=== PATIENT | male | born 1955 | race Caucasian/White ===

== ENCOUNTER 2019-08-29 10:58 | Inpatient (IN) | payer BC ==
[2019-08-29] VITALS (11 sets, daily range): BP systolic 116–149; BP diastolic 8–90; BMI 27.2
[~2019-08-29] VITALS: Ht 182.9 cm; Wt 92.1 kg
[2019-08-29] MEDS ORDERED: ACCURETIC PO (11:01)
[2019-08-29 11:34] LABS: CALC OSMOLALITY 296 mosm/kg (275-300); CALCIUM 9.3 mg/dL (8.5-10.1); CARBON DIOXIDE 28.5 mmol/L (21.0-32.0); CHLORIDE - SERUM 109 mmol/L (98-107); CREATININE - SERUM 1.2 mg/dL (0.6-1.3); GLUCOSE 96 mg/dL (74-106); POTASSIUM - SERUM 3.7 mmol/L (3.5-5.1); SODIUM 143 mmol/L (136-145); UREA NITROGEN 47 mg/dL (7-18); eGFR NON AFRICAN AMERICAN 65 mL/min (90-120)
[2019-08-29 11:35] LABS: APTT 25.8 SECONDS (22.8-39.4); INR 1.2 (0.85-1.17); PROTIME 15.2 SECONDS (11.6-15.0)
[2019-08-29 11:48] LABS: BASOPHILS 0.3 % (0-2); EOSINOPHILS 0.6 % (0-7); HEMATOCRIT 35.8 % (42.0-54.0); HEMOGLOBIN 11.7 g/dL (13.5-17.5); IMMATURE GRANULOCYTES 0.3 % (0-5); LYMPHOCYTES 6.6 % (15-50); MCH 30.8 pg (26.0-34.0); MCHC 32.7 g/dL (31.0-37.0); MCV 94.2 fL (80.0-100.0); MEAN PLATELET VOLUME 9.7 fL (7.4-10.4); MONOCYTES 4.8 % (2-11); NEUTROPHILS 87.4 % (40-80); PLATELET COUNT 303 10x3/uL (130-400); RDW 14.4 % (11.5-14.5); WBC 14.5 10x3/uL (4.8-10.8)
[2019-08-29 11:49] LABS: ALBUMIN 3.3 g/dL (3.4-5.0); ALKALINE PHOSPHATASE 43 U/L (30-120); ALT (SGPT) 19 U/L (10-68); BILIRUBIN - TOTAL 0.25 mg/dL (0.2-1.3); CKMB 0.5 U/L (0.0-3.6); CREATINE KINASE 40 UL (21-232); PROTEIN - SERUM 6.5 g/dL (6.4-8.2)
[2019-08-29 11:55] LABS: TROPONIN-I < 0.017 ng/mL (0.000-0.060)
--- NOTE | 2019-08-29 13:12 | NUR ---
REPORT RECEIVED FROM HEATHER FERNÁNDEZ IN THE ER. PT HOOKED TO ICU MONITORS. NSR ON THE MONITOR. VSS. PT DENIES PAIN AT THIS TIME. IV NOTED TO L AND R SISSY. DAVION DUMONT AT THE PTS BEDSIDE. PLAN FOR EGD LATER ON TODAY. PT CONSENTED FOR EGD WITH TIVA AND BLOOD TRANSFUSION IF NEEDED. PT CALL LIGHT IN REACH. WILL CONT POC.
[2019-08-29 15:22] LABS: HEMATOCRIT 36.5 % (42.0-54.0); HEMOGLOBIN 11.7 g/dL (13.5-17.5)
--- NOTE | 2019-08-29 16:00 | NUR ---
VSS. DENIES PAIN AT THIS TIME. CALL LIGHT IN REACH. WILL CONT POC.
--- NOTE | 2019-08-29 18:00 | NUR ---
VSS. WAITING FOR GI LAB. CALL LIGHT IN REACH. WILL CONT POC.
--- NOTE | 2019-08-29 19:20 | NUR ---
REPORT RECIEVED, SHIFT ASSESSMENT COMPLETE, PT IS ALERT AND ORIENTED, ALL PPP, VSS, CALL LIGHT IN REACH
--- NOTE | 2019-08-29 21:15 | NUR ---
FAMILY AT BEDSIDE, UPDATE GIVEN
[2019-08-29 21:23] LABS: HEMATOCRIT 33.8 % (42.0-54.0)
--- NOTE | 2019-08-29 23:28 | NUR ---
REASSESSMENT COMPLETE, NO CHANGES NOTED, WILL CON'T TO MONITOR
[2019-08-30] VITALS (13 sets, daily range): BP systolic 100–171; BP diastolic 55–113; Ht 182.9 cm; Wt 92.1 kg
--- NOTE | 2019-08-30 01:20 | NUR ---
NO NEEDS NOTED AT THIS TIME, WILL CON'T TO MONITOR
--- NOTE | 2019-08-30 03:15 | NUR ---
REASSESSMENT COMPELTE, NO CHANGES NOTED, PT RESTING AT THIS TIME, VSS, CALL LIGHT IN REACH
[2019-08-30 04:25] LABS: BASOPHILS 0.6 % (0-2); EOSINOPHILS 3.3 % (0-7); HEMOGLOBIN 10.2 g/dL (13.5-17.5); IMMATURE GRANULOCYTES 0.2 % (0-5); MCHC 31.9 g/dL (31.0-37.0); MCV 94.1 fL (80.0-100.0); MEAN PLATELET VOLUME 9.9 fL (7.4-10.4); MONOCYTES 7.1 % (2-11); NEUTROPHILS 73.8 % (40-80); PLATELET COUNT 274 10x3/uL (130-400); RDW 14.7 % (11.5-14.5)
[2019-08-30 04:35] LABS: WBC 10.1 10x3/uL (4.8-10.8)
[2019-08-30 04:47] LABS: ANION GAP 10.9 mmol/L (8-16); BILIRUBIN - TOTAL 0.43 mg/dL (0.2-1.3); CALCIUM 8.1 mg/dL (8.5-10.1); CARBON DIOXIDE 26.5 mmol/L (21.0-32.0); CREATININE - SERUM 1.1 mg/dL (0.6-1.3); POTASSIUM - SERUM 3.4 mmol/L (3.5-5.1); PROTEIN - SERUM 5.9 g/dL (6.4-8.2)
--- NOTE | 2019-08-30 05:30 | NUR ---
PT RESTING AT THIS TIME, WILL CON'T TO MONITOR
--- NOTE | 2019-08-30 07:35 | NUR ---
REPORT RECEVIED FROM THE OFF GOING RN. SEE ASSESSMENT IN THE PTS FLOW SHEET. PT DENIES PAIN AT THIS TIME. VSS. CALL LIGHT IN REACH. WILL CONT POC.
--- NOTE | 2019-08-30 11:00 | NUR ---
PT DENIES PAIN AT THIS TIME. CALL LIGHT IN REACH. WILL CONT POC.
--- NOTE | 2019-08-30 14:12 | NUR ---
LINENS AND WASH CLOTHES PROVIDED FOR THE PT. PT GAVE HIMSELF A BED BATH. PT TOLERATED WELL. WILL CONT POC.
[2019-08-30 14:19] LABS: HEMATOCRIT 35.4 % (42.0-54.0); HEMOGLOBIN 11.5 g/dL (13.5-17.5)
--- NOTE | 2019-08-30 15:30 | NUR ---
REPORT CALLED TO MARGRET SHANKS. PT LEFT IN A STABLE CONDITION.
--- NOTE | 2019-08-30 15:39 | NUR ---
RECEIVED PATIENT FROM ICU VIA WHEELCHAIR ACCOMPANIED BY STAFF. ALERT AND ORIENTED. NO C/O PAIN. NO S/S OF ACUTE DISTRESS NOTED. UP AD BETHEL. IV TO LEFT AND RIGHT AC, SL. SITE PATENT WITHOUT REDNESS OR SWELLING. DENIES ANY NEEDS AT THIS TIME. CALL LIGHT IN REACH. WILL CONTINUE TO MONITOR.
--- NOTE | 2019-08-30 18:03 | NUR ---
ALERT AND ORIENTED, SITTING UP IN BED TALKING ON CELL PHONE. NO C/O PAIN. NO S/S OF ACUTE DISTRESS NOTED. DENIES ANY NEEDS AT THIS TIME. CALL LIGHT IN REACH. WILL CONTINUE TO MONITOR.
--- NOTE | 2019-08-30 19:00 | NUR ---
BEDSIDE REPORT RECEIVED AND CARE OF PT ASSUMED. PT SITTING ON BEDSIDE VISITING WITH SPOUSE. IV TO LEFT AC PATENT WITH D5NS INFUSING AT 75 ML/HR. WILL MONITOR FOR NEEDS.
--- NOTE | 2019-08-30 21:00 | NUR ---
HS MEDICATIONS GIVEN. WILL CONTINUE TO MONITOR FOR NEEDS.
[2019-08-31] VITALS: BP 136/78
[2019-08-31 04:00] VITALS: BP 133/79
--- NOTE | 2019-08-31 07:10 | NUR ---
PT RESTING IN BED. NO SIGNS OF DISTRESS. IV TO RIGHT AC AND LEFT AC PATENT NO REDNESS OR TENDERNESS. DENIES ANY FURTHER NEED AT THIS TIME. CALL LIGHT IN REACH. BED LOW POSITION. FAMILY AT BEDSIDE AT THIS TIME.
[2019-08-31 07:29] LABS: BASOPHILS 0.9 % (0-2); EOSINOPHILS 7.1 % (0-7); HEMATOCRIT 30.8 % (42.0-54.0); HEMOGLOBIN 9.8 g/dL (13.5-17.5); IMMATURE GRANULOCYTES 0.1 % (0-5); LYMPHOCYTES 15.1 % (15-50); MCH 30.3 pg (26.0-34.0); MCHC 31.8 g/dL (31.0-37.0); MCV 95.4 fL (80.0-100.0); MEAN PLATELET VOLUME 9.7 fL (7.4-10.4); MONOCYTES 9.7 % (2-11); NEUTROPHILS 67.1 % (40-80); PLATELET COUNT 229 10x3/uL (130-400); RBC 3.23 10x6/uL (4.20-6.10); RDW 14.6 % (11.5-14.5)
[2019-08-31 07:31] LABS: WBC 6.8 10x3/uL (4.8-10.8)
[2019-08-31 07:44] LABS: CALC OSMOLALITY 286 mosm/kg (275-300); CARBON DIOXIDE 25.8 mmol/L (21.0-32.0); CHLORIDE - SERUM 111 mmol/L (98-107); CREATININE - SERUM 0.9 mg/dL (0.6-1.3); GLUCOSE 111 mg/dL (74-106); POTASSIUM - SERUM 3.3 mmol/L (3.5-5.1); SODIUM 142 mmol/L (136-145); eGFR NON AFRICAN AMERICAN > 90 mL/min (90-120)
[2019-08-31 07:45] LABS: UREA NITROGEN 20 mg/dL (7-18)
[2019-08-31 08:04] VITALS: BP 137/82
--- NOTE | 2019-08-31 10:57 | MORECARE ---
CASE MANAGEMENT DISCHARGE SUMMARY PATIENT: RANJAN HANSON UNIT: [id number] ADM DATE: 08/29/19 AGE: 64 : 59 SEX: M ROOM/BED: D.2235 AUTHOR: NARESH GROSS PHYSICIAN: REFERRING PHYSICIAN: KATH YEUNG MD DATE OF SERVICE: 08/31/19 Discharge Plan Patient Name: RANJAN HANSON [facility] [facility] 1955 Planned Disposition: Home Anticipated Discharge Date: Discharge Date: Expected LOS: Initial Reviewer: [email or web address] Initial Review Date: 08/30/2019 Generated: 08/31/19 11:56 am DCPIA - Discharge Planning Initial Assessment Updated by [email or web address]: Ghazal Garcia on 08/31/19 10:56 am * Is the patient Alert and Oriented? Yes * How many steps to enter\exit or inside your home? * PCP NO PCP * [facility] * Preadmission Environment Home with Family * ADLs Independent * List name and contact numbers for known caregivers / representatives who currently or will assist patient after discharge: VAIBHAV HANSON - SPOUSE- [phone] * Verbal permission to speak to the caregivers and representatives has been obtained from the patient. Yes * Community resources currently utilized None * Additional services required to return to the preadmission environment? No * Can the patient safely return to the preadmission environment? Yes * Has this patient been hospitalized within the prior 30 days at any hospital? No Patient Name: RANJAN HANSON Page 92871 at 1057 All edits/amendments must be made on the electronic document DICTATION DATE: 08/31/19 1056 WAXER: SOFIYA 08/31/19 1056 RPT#: [id number] DC DATE: STATUS: ADM IN [facility] [address] [place] [address] END OF REPORT
--- NOTE | 2019-08-31 11:06 | MORECARE ---
CASE MANAGEMENT DISCHARGE SUMMARY PATIENT: RANJAN HANSON UNIT: [id number] ADM DATE: 08/29/19 AGE: 64 : 59 SEX: M ROOM/BED: D.2235 AUTHOR: GINNYDOC PHYSICIAN: REFERRING PHYSICIAN: KATH YEUNG MD DATE OF SERVICE: 08/31/19 Discharge Plan Patient Name: RANJAN HANSON Facility: [facility]:[place] : 1955 Planned Disposition: Home Anticipated Discharge Date: Discharge Date: Expected LOS: Initial Reviewer: [email or web address] Initial Review Date: 08/30/2019 Generated: 08/31/19 12:05 pm Comments DCP- Discharge Planning Updated by [email or web address]: Ghazal Garcia on 08/31/19 10:[address] LATE ENTRY 08/30/19 Patient Name: RANJAN HANSON Admission Status: ER Accout number: [id number] Admission Date: 08-29-2019 : 1955 Admission Diagnosis: Attending: KATH YEUNG Current LOS: 1 Anticipated DC Date: Planned Disposition: Home Primary Insurance: [employer] Discharge Planning Comments: CM met with patient at bedside after explaining CM role and obtaining verbal consent. Patient lives at home with his where he is independent with his care and plans to return there upon discharge. Patient feels this would be a safe discharge. CM discussed availability / needs of home health and medical equipment. Patient denies any discharge needs at this time. Patient states he will have his family drive him home upon discharge. CM will continue to follow and assist as needed with discharge planning / needs. Pest Control Worker Helper: Ghazal Garcia DCPIA - Discharge Planning Initial Assessment Updated by [email or web address]: Ghazal Garcia on 08/31/19 10:56 am * Is the patient Alert and Oriented? Yes * How many steps to enter\exit or inside your home? * PCP NO PCP * [facility] * Preadmission Environment Home with Family * ADLs Independent * List name and contact numbers for known caregivers / representatives who currently or will assist patient after discharge: VAIBHAV HANSON - SPOUSE- [phone] * Verbal permission to speak to the caregivers and representatives has been obtained from the patient. Yes * Community resources currently utilized None * Additional services required to return to the preadmission environment? No * Can the patient safely return to the preadmission environment? Yes * Has this patient been hospitalized within the prior 30 days at any hospital? No Last DP export: 08/31/19 9:57 a Patient Name: RANJAN HANSON Page [id number] at 1106 All edits/amendments must be made on the electronic document DICTATION DATE: 08/31/191104 CAR AUDIO INSTALLER: SOFIYA 08/31/19 110 RPT#: [id number] DC DATE: STATUS: ADM IN [facility] [address] [place] [address] END OF REPORT
[2019-08-31 12:27] LABS: HEMATOCRIT 31.7 % (42.0-54.0); HEMOGLOBIN 10.1 g/dL (13.5-17.5)
[2019-08-31 13:16] VITALS: BP 145/87
[2019-08-31] MEDS ORDERED: PROTONIX40 MG PO ×2 (14:11→14:12)
[2019-08-31] MEDS ORDERED: CARAFATE1 G/10 ML PO (14:20)
--- NOTE | 2019-08-31 15:06 | MORECARE ---
CASE MANAGEMENT DISCHARGE SUMMARY PATIENT: RANJAN HANSON UNIT: [id number] ADM DATE: 08/29/19 AGE: 64 : 59 SEX: M ROOM/BED: D.2235 AUTHOR: GINNYDOC PHYSICIAN: REFERRING PHYSICIAN: KATH YEUNG MD DATE OF SERVICE: 08/31/19 Discharge Plan Patient Name: RANJAN HANSON Facility: [facility]:[place] : 1955 Planned Disposition: Home Anticipated Discharge Date: Discharge Date: Expected LOS: Initial Reviewer: [email or web address] Initial Review Date: 08/30/2019 Generated: 08/31/19 4:05 pm Comments DCP- Discharge Planning Updated by [email or web address]: Natalie Lock on 08/31/19 2:[address] Patient Name: RANJAN HANSON Encounter No: [id number] : 1955 Primary Insurance: [email or web address] PPO Anticipated DC Date: Planned Disposition: Home External Planned Provider: : DCP follow-up note: Patient and family in agreement with discharge plan. No changes to plan. Case management will follow and assist as needed. Natalie Lock DCP- Discharge Planning Updated by [email or web address]: Ghazal Garcia on 08/31/19 10:[address] LATE ENTRY 08/30/19 Patient Name: RANJAN HANSON Admission Status: ER Accout number: [id number] Admission Date: 08-29-2019 : 1955 Admission Diagnosis: Attending: KATH YEUNG Current LOS: 1 Anticipated DC Date: Planned Disposition: Home [facility] Discharge Planning Comments: CM met with patient at bedside after explaining CM role and obtaining verbal consent. Patient lives at home with his where he is independent with his care and plans to return there upon discharge. Patient feels this would be a safe discharge. CM discussed availability / needs of home health and medical equipment. Patient denies any discharge needs at this time. Patient states he will have his family drive him home upon discharge. CM will continue to follow and assist as needed with discharge planning / needs. Personal Financial Advisor: Ghazal Garcia DCPIA - Discharge Planning Initial Assessment Updated by [email or web address]: Ghazal Garcia on 08/31/19 10:56 am * Is the patient Alert and Oriented? Yes * How many steps to enter\exit or inside your home? * PCP NO PCP * [facility] * Preadmission Environment Home with Family * ADLs Independent * List name and contact numbers for known caregivers / representatives who currently or will assist patient after discharge: VAIBHAV HANSON - [facility]- [phone] * Verbal permission to speak to the caregivers and representatives has been obtained from the patient. Yes * Community resources currently utilized None * Additional services required to return to the preadmission environment? No * Can the patient safely return to the preadmission environment? Yes * Has this patient been hospitalized within the prior 30 days at any hospital? No Last DP export: 08/31/19 10:06 a Patient Name: RANJAN HANSON Page 94829 at 1506 All edits/amendments must be made on the electronic document DICTATION DATE: 08/31/19 1505 BANDAGE WRAPPING MACHINE OPERATOR: SOFIYA 08/31/19 1505 RPT#: [id number] DC DATE: STATUS: ADM IN [facility] [address] [place] [address] END OF REPORT
--- NOTE | 2019-08-31 16:27 | NUR ---
DISCHARGE INSTRUCTIONS GIVEN. SEEMS TO UNDERSTAND INSTRUCTIONS. IV OUT TIP INTACT. LEFT WITH HOSPITAL STAFF TO GO HOME IN PERSONAL RIDE.
--- NOTE | 2019-09-05 09:21 | MORECARE ---
CASE MANAGEMENT DISCHARGE SUMMARY PATIENT: RANJAN HANSON UNIT: [id number] ADM DATE: 08/29/19 AGE: 64 : 59 SEX: M ROOM/BED: D.2235 AUTHOR: GINNY,DOC PHYSICIAN: REFERRING PHYSICIAN: KATH YEUNG MD DATE OF SERVICE: 09/05/19 Discharge Plan Patient Name: RANJAN HANSON Facility: [facility]:[place] : 1955 Planned Disposition: Home Anticipated Discharge Date: Discharge Date: 08/31/2019 Expected LOS: Initial Reviewer: [email or web address] Initial Review Date: 08/30/2019 Generated: 09/05/19 10:20 am Comments DCP- Discharge Planning Updated by [email or web address]: Natalie Lock on 08/31/19 2:[address] Patient Name: RANJAN HANSON Encounter No: [id number] : 1955 Primary Insurance: [employer] PPO Anticipated DC Date: Planned Disposition: Home External Planned Provider: : DCP follow-up note: Patient and family in agreement with discharge plan. No changes to plan. Case management will follow and assist as needed. Natalie Hayde DCP- Discharge Planning Updated by [email or web address]: Ghazal Garcia on 08/31/19 10:[address] LATE ENTRY 08/30/19 Patient Name: RANJAN HANSON Admission Status: ER Accout number: [id number] Admission Date: 08-29-2019 : 1955 Admission Diagnosis: Attending: KATH YEUNG Current LOS: 1 Anticipated DC Date: Planned Disposition: Home Primary Insurance: [employer] PPO Discharge Planning Comments: CM met with patient at bedside after explaining CM role and obtaining verbal consent. Patient lives at home with his where he is independent with his care and plans to return there upon discharge. Patient feels this would be a safe discharge. CM discussed availability / needs of home health and medical equipment. Patient denies any discharge needs at this time. Patient states he will have his family drive him home upon discharge. CM will continue to follow and assist as needed with discharge planning / needs. Aviation Technical Systems Specialist: Ghazal Garcia DCPIA - Discharge Planning Initial Assessment Updated by [email or web address]: Ghazal Garcia on 08/31/19 10:56 am * Is the patient Alert and Oriented? Yes * How many steps to enter\exit or inside your home? * PCP NO PCP * [facility] * Preadmission Environment Home with Family * ADLs Independent * List name and contact numbers for known caregivers / representatives who currently or will assist patient after discharge: VAIBHAV HANSON - [facility]- [phone] * Verbal permission to speak to the caregivers and representatives has been obtained from the patient. Yes * Community resources currently utilized None * Additional services required to return to the preadmission environment? No * Can the patient safely return to the preadmission environment? Yes * Has this patient been hospitalized within the prior 30 days at any hospital? No Last DP export: 08/31/19 2:05 p Patient Name: RANJAN HANSON Page 98570 at 0921 All edits/amendments must be made on the electronic document DICTATION DATE: 09/05/19919 MACHINE EDGE BANDER: SOFIYA 09/05/19919 RPT#: [id number] DC DATE:08/31/19 STATUS: DIS IN [facility] [address] [place] [address] END OF REPORT
== END 2019-08-31 16:28 | disposition home or self-care (01) | DRG 378 ==
LOC: D.ER 10:58 → D.ICU 11:52 → D.MS 08-30 15:31
PROVIDERS: Family Medicine; Internal Medicine Gastroenterology; ADMIT Internal Medicine Nephrology; ATTEND Internal Medicine Nephrology
PROC: 0DB78ZX Excision of Stomach, Pylorus, Via Natural or Artificial Opening Endoscopic, Diagnostic (ICD-10-PCS; principal; 2019-08-29 16:00)
DX: K92.0 Hematemesis (principal); D62 Acute posthemorrhagic anemia; N17.9 Acute kidney failure, unspecified; R55 Syncope and collapse; E87.6 Hypokalemia; I10 Essential (primary) hypertension; K25.9 Gastric ulcer, unspecified as acute or chronic, without hemorrhage or perforation